=== PATIENT | female | born 1990 | race Caucasian/White ===

== ENCOUNTER → 2022-12-07 12:24 | Outpatient (CLI) | payer SELFPAY ==
[2022-12-07 10:38] LABS: Adenovirus,PCR Not Detected (NotDetected); Bordetella Pertussis Not Detected (NotDetected); Chlamydophila Pneumoniae, PCR Not Detected (NotDetected); Coronavirus 229E Not Detected (NotDetected); Coronavirus NL63 Not Detected (NotDetected); Coronavirus OC43 Not Detected (NotDetected); Coronovirus HKU1,PCR Not Detected (NotDetected); Human Metapneumovirus Not Detected (NotDetected); Influenza A, PCR Not Detected (NotDetected); Influenza AH1, 2009 Not Detected (NotDetected); Influenza AH1, PCR Not Detected (NotDetected); Influenza AH3,PCR Not Detected (NotDetected); Influenza B, PCR Not Detected (NotDetected); Mycoplasma Pneumoniae, PCR Not Detected (NotDetected); Parainfluenza 1, PCR Not Detected (NotDetected); Parainfluenza 2, PCR Not Detected (NotDetected); Parainfluenza 3, PCR Not Detected (NotDetected); Parainfluenza 4, PCR Not Detected (NotDetected); Respiratory Syncytial Virus Not Detected (NotDetected)
[2022-12-07 12:52] LABS: Coronavirus 19, PCR Detected (NotDetected); Rhinovirus/Enterovirus Detected (NotDetected)
== END ==
PROVIDERS: PCP Nurse Practitioner Family; Visit Provider Nurse Practitioner Family
DX: J06.9 Acute upper respiratory infection, unspecified (principal); U07.1 COVID-19; B34.1 Enterovirus infection, unspecified
CPT/HCPCS: 87581; 87632; 87635; 87798

== ENCOUNTER 2023-09-25 11:26 | Outpatient (POV) | payer SELFPAY | END 2023-09-25 23:59 | disposition home or self-care (01) | LOC: SC 11:26 | PROVIDERS: PCP Nurse Practitioner Family; Visit Provider Dermatology | DX: Z00.00 Encounter for general adult medical examination without abnormal findings (principal) ==

== ENCOUNTER 2024-03-21 14:48 | Outpatient (CLI) | payer SELFPAY ==
[2024-03-21 15:16] LABS: Hemoglobin A1C 4.9 % (4.0-6.0)
== END 2024-03-21 23:59 | disposition home or self-care (01) ==
LOC: LAB.DROPOF 14:50
PROVIDERS: PCP Nurse Practitioner Obstetrics & Gynecology; Visit Provider Nurse Practitioner Obstetrics & Gynecology
DX: E11.9 Type 2 diabetes mellitus without complications (principal)
CPT/HCPCS: 83036

== ENCOUNTER 2024-05-01 11:21 | Outpatient (CLI) | payer SELFPAY ==
--- NOTE | 2024-05-01 11:23 | XR_ITS ---
FINAL REPORT CLINICAL HISTORY: foot pain, dorsum of foot COMPARISON: None FINDINGS: AP, oblique and lateral views of the left foot were obtained. There is no acute fracture or dislocation. The joint spaces are preserved. Soft tissues are unremarkable. IMPRESSION: No acute osseous abnormality of the left foot. Reviewed, Interpreted and Dictated by Marleny Fernandez MD Transcribed by Judit Park Authenticated and . [facility]
== END 2024-05-01 23:59 | disposition home or self-care (01) ==
LOC: RAD 11:22
PROVIDERS: PCP Family Medicine; Visit Provider Podiatrist
DX: M79.672 Pain in left foot (principal)
CPT/HCPCS: 73630

== ENCOUNTER 2024-08-21 12:03 | Outpatient (CLI) | payer OTHER, SELFPAY ==
--- NOTE | 2024-08-21 12:05 | XR_ITS ---
FINAL REPORT TECHNIQUE: Chest PA & Lateral CLINICAL HISTORY: URI, cough COMPARISON: None FINDINGS: 2 views of the chest were performed. The heart size is normal. The mediastinum is within normal limits. There is no acute cardiopulmonary process. There are no pleural effusions. There is no pneumothorax. The bony thorax appears intact. IMPRESSION: No acute cardiopulmonary process. Reviewed, Interpreted and Dictated by Salvatore Oliveira MD Transcribed by Judit Park Authenticated and [facility]
--- OUTSIDE RECORDS SUMMARY | 2024-08-21 13:29 | XMS_ITS | Continuity of Care Document ---
Author Name [facility] Organization [facility] Care Team Providers Care Bander Name Role Phone [facility] Unavailable Unavailable Immunizations Combined list of available immunizations from the Department of Defense and Veterans Affairs facilities. Immunization Series Date Given Administered By Site Reaction Lot Number CVX Code Drug Mover Status Comments Source influenza, injectable, quadrivalent 2022 [id number] ID Biomedical comple t ed influenza , injectabl e, quadrival ent 12/06/22 Given Ambulat ory Pharmac y influenza, injectable, quadrivalent- pf 2022 [id number] GlaxoSmithKli ne complet ed influenza , injectabl e, quadrival ent-pf 04/15/22 Given Ambulat ory Pharmac y influenza, injectable, quadrivalent- pf 2020 [id number] Unknown complet ed influenza , injectabl e, quadrival ent-pf 01/15/21 Given Ambulat ory Pharmac y COVID Vaccine Pfizer 2020 [id number] PFIZER complet ed COVID Vaccine Pfizer 03/18/20 Given Ambulat ory Pharmac y influenza, seasonal, injectable-pf 2017 [id number] 140 GlaxoSmithKli ne complet ed influenza , seasonal, injectabl e-pf 12/21/17 Given Ambulat ory Pharmac y hepatitis A adult vaccine 2017 [id number] GlaxoSmithKli ne complet ed hepatitis A adult vaccine 12/21/17 Given Ambulat ory Pharmac y influenza, injectable, quadrivalent- pf 2016 [id number] 150 GlaxoSmithKli ne complet ed influenza , injectabl e, quadrival ent-pf 12/19/16 Given Ambulat ory Pharmac y tetanus, diphtheria, acellular pertu is 2016 [id number] Unknown complet ed tetanus, diphtheri a, acellular pertussis 12/19/16 Given Ambulat ory Pharmac y influenza, seasonal, injectable-pf 2015 [id number] 140 Unknown complet ed influenza , seasonal, injectabl e-pf 01/19/16 Given Ambulat ory Pharmac y hepatitis A-hepatitis B vaccine 2015 [id number] GlaxoSmithKli ne complet ed hepatitis A-hepatit is B vaccine 01/15/16 Given Ambulat ory Pharmac y hepatitis A-hepatitis B vaccine 2015 [id number] 104 GlaxoSmithKli ne complet ed hepatitis A-hepatit is B vaccine 06/01/15 Given Ambulat ory Pharmac y hepatitis A-hepatitis B vaccine 2015 [id number] 104 GlaxoSmithKli ne complet ed hepatitis A-hepatit is B vaccine 06/01/15 Given Ambulat ory Pharmac y influenza, injectable, quadrivalent- pf 2015 [id number] 150 GlaxoSmithKli ne complet ed influenza , injectabl e, quadrival ent-pf 03/20/15 Given Ambulat ory Pharmac y poliovirus vaccine, inactivated 1996 [id number] 10 Unknown complet ed polioviru s vaccine, inactivat ed 10/24/96 Given Ambulat ory Pharmac y poliovirus vaccine, inactivated 1991 UNK 10 Unknown complet ed polioviru s vaccine, inactivat ed 91 Given Ambulat ory Pharmac y Procedures Combined list of: 1) Procedures from Department of Veterans Affairs facilities going back up to thelast 18 months, not all [place] non-surgical procedures are included; 2) All procedures from the Department of Defense facilities. Procedure Procedure Type Code Date Perfomer Comments Sourc e No data available for this section Ambulatory P harmacy Assessment and Plan Combined list of future care activities from Department of Defense and Veterans Affairs facilities (e.g., assessment and plan notes, appointments, orders, and referrals). Additional future care activities may be listed in the Plan of Care section. Result Assessment and Plan Date Source Assessment and Plan No data available for this section 08/21/2024 Ambulatory Pharmacy Functional Status Combined list of recent functional and cognitive assessments recorded at Department of Defense and [facility] Affairs ([place] Functional [place] Measurement (FIM) Scale: 1 = Total Assistance (Subject = 0% +), 2 = Maximal Assistance (Subject = 25% +), 3 = Moderate Assistance (Subject = 50% +), 4 = Minimal Assistance (Subject = 75% +), 5 = Supervision, 6 = Modified [place] (Device), 7 = Complete [place] (Timely, Safely). Assessment Date/Time Source Assessment Type Assessment Skill Assessment Score Assessment Details No data available for this section
--- OUTSIDE RECORDS SUMMARY | 2024-08-21 13:30 | XMS_ITS | Clinical Summary ---
Author Organization [facility] Address [address] [place] [address] Phone Care Team Providers Care Reconciler Name Role Phone Unavailable Primary Care Provider Unavailabl e Allergies No known active allergies Medications vit-iron fum-folic ac 27 mg iron- 0.8 mg Oral Tablet Take 1 Tab by mouth daily. Active cefUROXime (CEFTIN) 250 mg Oral Tablet Take 1 Tab by mouth every 12 hours for 10 days 20 Tab 11/21/2017 4:06 PM EDT 11/21/2017 Active Active Problems No known active problems Immunizations Immunization Administration Dates Next Due DTaP 11/07/1996, 3,1991,1991,1991 HPV Quadrivalent 12/24/2006,08/22/2006, 7 Hepatitis B, Unspecified Formulation 07/2003,10/29/2002,08/26/2002,2002 HiB, Unspecified Formulation 09/27/1992, 1991,1991,1991 IPV 07/18/2002, 5,09/27/1992,1991,1991 MMR 02/13/2017(Deferred: Patient Refused - pt states has received 4-5 times and it never takes ),11/07/1996,09/27/1992 Meningococcal Conjugate 01/11/2005 Tdap 01/08/2017,07/18/2002 Surgical History Surgery Date Site/Laterality Comments LEEP 08/31/2015 N/A Loop Electrosurgical Excision Procedure and Removal Intrauterine Device; Surgeon: Abdoul Kaba MD; Location: [facility]; Service: Gynecology Medical devices from this surgery are in the Medical Devices section. DENTAL SURGERY wisdom teeth - 2009 Medical History Medical History Date Comments Asthma sports induced Family History Medical History Relation Name Comments Diabetes Maternal Grandfather High Blood Pressure Maternal Grandfather High Cholesterol Maternal Grandfather High Cholesterol Maternal Grandmother Thyroid Disease Mother Cancer Paternal Grandfather lung ca Diabetes Paternal Grandmother High Blood Pressure Paternal Grandmother High Cholesterol Paternal Grandmother Relation Name Status Comments Father Alive Maternal Grandfather Alive Maternal Grandmother Alive Mother Alive Paternal Grandfather Paternal Grandmother Alive Social History Tobacco Use Types Packs/Day Years Used Date Smoking Tobacco: Never Smokeless Tobacco: Never Alcohol Use Standard Drinks/Week Comments No 0 (1 standard drink = 0.6 oz pur e alcohol) Comments No Sex and Gender Information Value Date Recorded Sex Assigned at Not on file Legal Sex Female 3:34 PM EDT Gender Identity Not on file Sexual Orientation Not on file Obstetrics History Para Term AB IAB SAB Ectopic Multiple Livin g Live Births 1 1 1 0 1 1 Date Outcome GA Total Labor Labor/2nd/3rd Weight Sex Type Anes PTL Barbara A1 A5 Name Clin 017 Term 38w 6d 0h 04m 0h 04m 7 lb 10.8 oz (3.48 kg) F Vag-S pont Epidur al N Livin g 8 9 SEEMA QUACH BABY Abdoul Welsh MD Delivery Location:[facility] ([facility]) Last Filed Vital Signs Vital Sign Reading Time Taken Comments Blood Pressure 110/63 02/13/2017 11:10 AM EST Pulse 80 02/13/2017 11:10 AM EST Temperature 36.8 C (98.2 F) 02/13/2017 11:10 AM EST Respiratory Rate 16 02/13/2017 11:10 AM EST Oxygen Saturation 97% 02/13/2017 11:10 AM EST Inhaled Oxygen Concentration - - Weight 78.5 kg (173 lb) 02/11/2017 8:44 AM EST Height 170.2 cm (5' 7 ) 02/11/2017 8:44 AM EST Body Mass Index 27.1 02/11/2017 8:44 AM EST Plan of Treatment Health Maintenance Due Date Last Done Comments Annual Wellness Exam 1994 Pap Smear 03/15/2013 03/15/2010 Cervical Cancer Screening 2021 HPV/Pap Cotest 2021 COVID-19 Vaccine (2023- season) 2023 Influenza Vaccine (Season Ended) 2024 DTaP/TDaP/Td (8 - Td or Tdap) 01/08/2027 01/08/2017, 07/18/2002, 11/07/1996, Additional history exists Hepatitis B Vaccine Completed 05/15/2003, 10/29/2002, 08/26/2002, Additional history exists Meningococcal B Vaccine Aged Out No l onger eligible based on patient's age to complete this topic Pneumococcal Vaccine 0-49 Aged Out No longer eligible based on patient's age to complete this topic Medical Devices Explanted Type Area Telesales Manager Device Identifier Shelf Expiration Date Model / Serial / Lot Iud Explanted:Qty: 1 on 08/31/2015 by Abdoul Kaba MD at [facility] Procedures Procedure Name Priority Date/Time Associated Diagnosis Comments FUMIGATOR AND STERILIZER CYTOLOGY REPORT Routine 03/15/2010 3 :14 AM EST from Last 3 Months or Most Recently Relevant to Health Maintenance Results * FUMIGATOR AND STERILIZER CYTOLOGY REPORT (03/15/2010 3:14 AM EST) Construction Trades Teacher Cytology Report PATIENT NAME:LUZ MORENO Construction Trades Teacher Cytology Report Accession Number Collected Date/Time Received Date/Time [id number] 03/15/10 03:14 EST 03/16/10 03:14 EST GY Specimen Source Specimen Vag/Cerv/Endocx?: Cervical/Endocervi negrito Statement of Adequacy Satisfactory for Evaluation. Transformation Zone Present. Diagnosis NEGATIVE FOR INTRAEPITHELIAL LESION OR MALIGNANCY. Comment The Pap Smear is a screening test that aids in the detection of cervical cancer and cancer precursors. Both false positive and false negative results can occur. The test should be used at regular intervals, and positive results should be confirmed before definitive therapy. Processed using the Hi[employer]Prep Fluid Power Mechanic automated cytology screening device (News[employer]). Lithoplate Maker: FABIAN 03/27/2010 Completed by: JACINTO Kyle (Electronically signed by) 03/27/2010 [facility] 03/15/2010 3:14 AM EST us Abdoul Kaba MD PATHOLOGY ORDERABLES Final Res ult [facility] [address] [place] [address] from Last 3 Months or Most Recently Relevant to Health Maintenance Insurance [place] [id number] CLAIMS Advance Directives For more information, please contact: [phone] * Full Code (Latest Code Status on File) Date Activated Date Inactivated Comments 02/11/2017 9:05 AM 02/13/2017 6:46 PM
--- OUTSIDE RECORDS SUMMARY | 2024-08-21 13:31 | XMS_ITS | Encounter Summary ---
Author Organization [place] [address] Care Team Providers Care Family Practice Md Name Role Phone Unavailable Primary Care Provider Unavailabl e Encounter Details Date Type Department Care Team (Latest Contact Info) Description 01/15/2017 Lab Requisition [facility] [address] [facility] [place] [address] Jaden Peraza MD [address] [place] [address] Carrier of group B Streptococcus Social History Tobacco Use Types Packs/Day Years Used Date Smoking Tobacco: Never Smokeless Tobacco: Never Alcohol Use Standard Drinks/Week Comments No 0 (1 standard drink = 0.6 oz pur e alcohol) Comments Yes Sex and Gender Information Value Date Recorded Sex Assigned at Not on file Legal Sex Female 3:34 PM EDT Gender Identity Not on file Sexual Orientation Not on file documented as of this encounter Plan of Treatment Not on file documented as of this encounter Procedures Procedure Name Priority Date/Time Associated Diagnosis Comments STREP B DNA Today 01/15/2017 1:19 PM EST Carrier of group B Streptococcus documented in this encounter Results * (ABNORMAL) STREP B DNA (01/15/2017 1:19 PM EST) Strep B DNA Detected(A ) Not Detected 01/17/2017 2:27 PM EST [facility] Swab RECTUM AND VAGINA, CS / Unknown 01/15/2017 1:19 PM EST 01/16/2017 8:03 AM EST Narrative [facility] - 01/17/2017 2:27 PM EST TEST INFORMATION: This qualitative assay utilizes molecular amplification to detect a portion of the Streptococcus agalactiae genome and is intended for a screen of antepartum women in 35-37 weeks gestation. A negative result does not rule out the presence the Group B Strep in concentrations below the limit of detection for the assay. Severe penicillin allergic patients should have clindamycin susceptibility testing performed. If this patient has a known penicillin allergy which is not documented in the EPIC chart, please notify Microbiology within one week at . us Jaden Peraza MD MICROBIOLOGY - GENERAL ORDERABL ES Final Result [facility] [address] [place] [address] documented in this encounter Visit Diagnoses Diagnosis Carrier of group B Streptococcus Carrier or suspected carrier of Group B streptococcus documented in this encounter
== END 2024-08-21 23:59 | disposition home or self-care (01) ==
LOC: RAD 12:04
PROVIDERS: PCP Family Medicine; Visit Provider Nurse Practitioner Family
DX: J06.9 Acute upper respiratory infection, unspecified (principal)
CPT/HCPCS: 71046